=== PATIENT | female | born 1940 | race African-American/Black ===

== ENCOUNTER 2017-08-21 19:13 | Inpatient (IN) | payer MEDICARE, BC ==
[~2017-08-21] VITALS: Ht 167.6 cm; Wt 119.3 kg
[2017-08-21] MEDS ORDERED: SODIUM CHLORIDE 0.9% 1,000 ML IV ONE ×2 (19:17→21:15)
[2017-08-21] MEDS ORDERED: PROPOFOL 10MG/ML 100ML 100 ML IV ONE (19:30)
[2017-08-21] MEDS ORDERED: LORAZEPAM 2MG/ML CPJ IV ONE (19:45)
[2017-08-21] MEDS ORDERED: LEVETIRACETAM 500MG PREMIX 100 ML IV ONE (19:45)
[2017-08-21 20:35] LABS: BG BASE EXCESS -8.9 mmol/L (-2.0-2.0); BG CARBOXYHEMOGLOBIN 0.3 % (0.5-1.5); BG DEOXYHEMOGLOBIN 0.4 % (0.0-5.0); BG FRACTION INSPIRED OXYGEN 100; BG METHEMOGLOBIN 0.4 % (0.0-1.5); BG OXYGEN SATURATION 99.6 % (92.0-98.5); BG OXYHEMOGLOBIN 98.9 % (94.0-97.0); BG PCO2 27.7 mmHg (35.0-45.0); BG PH 7.351 (7.350-7.450); BG SAMPLE SITE RIGHT RADIAL; BG TIDAL VOLUME(mL) 600 mL; BG TOTAL HEMOGLOBIN 15.1 g/dL (12.0-18.0); BG VENT MODE VENT - A/C; BG VENT RATE 14 set
[2017-08-21 20:58] LABS: INR 1.1; PROTHROMBIN TIME 11.4 sec (9.4-11.6)
[2017-08-21 20:59] LABS: CLARITY URINE CLEAR (CLEAR); COLOR URINE YELLOW (YELLOW); GLUCOSE URINE 3+ (NEGATIVE); KETONES URINE NEGATIVE (NEGATIVE); LEUKOCYTE ESTERASE URINE NEGATIVE (NEGATIVE); NITRITE URINE NEGATIVE (NEGATIVE); OCCULT BLOOD URINE 3+ (NEGATIVE); PROTEIN URINE 1+ (NEGATIVE); SPECIFIC GRAVITY URINE 1.026 (1.005-1.030); UROBILINOGEN URINE 0.2 E.U./dL (0.2-1.0)
[2017-08-21 21:01] LABS: AMMONIA 20 uMol/L (<32)
[2017-08-21 21:03] LABS: CARBON DIOXIDE 14 mEq/L (21-32); CHLORIDE 105 mEq/L (98-107); ETHANOL BLOOD < 10 mg/dL
[2017-08-21 21:04] LABS: HEMATOCRIT. 39.2 % (36.0-48.0); HEMOGLOBIN. 12.7 g/dL (12.0-16.0); MEAN CORPUSCULAR HEMOGLOBIN 29.7 pg (28.0-32.0); MEAN CORPUSCULAR VOLUME 91.8 fL (81.0-99.0); MEAN PLATELET VOLUME 11.9 fl (7.4-10.4); PLATELET 227 x1000/uL (130-400); RED BLOOD CELL COUNT 4.27 mill/uL (4.2-5.4); RED CELL DISTRIBUTION WIDTH 14.8 % (11.6-14.6)
[2017-08-21 21:06] LABS: TROPONIN I 0.19 ng/mL (0.00-0.04)
[2017-08-21 21:08] LABS: *AMPHETAMINES SCREEN URINE NEGATIVE (NEGATIVE); *BARBITURATES SCREEN URINE NEGATIVE (NEGATIVE); *BENZODIAZEPINES SCREEN URINE NEGATIVE (NEGATIVE); *COCAINE SCREEN URINE NEGATIVE (NEGATIVE); CANNABINOID URINE SCREEN NEGATIVE (NEGATIVE); METHADONE URINE SCREEN NEGATIVE (NEGATIVE); OPIATES URINE SCREEN NEGATIVE (NEGATIVE); PHENCYCLIDINE URINE SCREEN NEGATIVE (NEGATIVE)
[2017-08-21 21:10] LABS: CARBAMAZEPINE < 0.5 ug/mL (4-12)
[2017-08-21] MEDS ORDERED: INSULIN REGULAR (DRIP) 100 UNITS in SODIUM CHLORIDE 0.9% 99 ML IV SCH (21:15)
[2017-08-21] MEDS ORDERED: INSULIN REGULAR (HUMULIN R) 300UNITS/3ML IV ONE (21:15)
[2017-08-21 21:18] LABS: PHENOBARBITAL < 2.1 ug/mL (15.0-40.0)
[2017-08-21 21:21] LABS: CREATINE KINASE 5485 IU/L (26-192)
[2017-08-21 22:06] LABS: PLATELET ESTIMATE NORMAL
[2017-08-22] VITALS (93 sets, daily range): BP systolic 89–162; BP diastolic 43–97
[2017-08-22] MEDS ORDERED: INSULIN REGULAR (DRIP) 100 UNITS in SODIUM CHLORIDE 0.9% 100 ML IV SCH (01:28)
[2017-08-22] MEDS: SODIUM CHLORIDE 0.9% 1,000 ML IV SCH ×4 (01:30→21:30)
[2017-08-22] MEDS: BLOOD SUGAR DIAGNOSTIC STRIP TEST SCH ×19 (01:30→23:30)
[2017-08-22] MEDS ORDERED: DEXTROSE 50% WATER 50ML SYRINGE IV PRN ×2 (01:30)
[2017-08-22] MEDS: PROPOFOL 10MG/ML 100ML 100 ML IV PRN ×2 (03:37→20:46)
[2017-08-22] MEDS: ENOXAPARIN 30MG/0.3ML SYR SUBCUT SCH (08:07)
[2017-08-22] MEDS: PANTOPRAZOLE SODIUM 40 MG/VIAL IV SCH (08:07)
[2017-08-22 09:09] LABS: BG BASE EXCESS -4.3 mmol/L (-2.0-2.0); BG CARBOXYHEMOGLOBIN 0.2 % (0.5-1.5); BG FRACTION INSPIRED OXYGEN 50; BG HCO3 ACT 17.8 mmol/L (22.0-26.0); BG METHEMOGLOBIN 0.4 % (0.0-1.5); BG OXYHEMOGLOBIN 98.4 % (94.0-97.0); BG PCO2 25.6 mmHg (35.0-45.0); BG PO2 173.8 mmHg (75.0-100.0); BG SAMPLE SITE RIGHT BRACHIAL; BG TIDAL VOLUME(mL) 600 mL; BG VENT MODE VENT - A/C; BG VENT RATE 14 set
[2017-08-22] MEDS ORDERED: LEVOFLOXACIN 750MG PREMIX 150 ML IV SCH (12:00)
[2017-08-22] MEDS ORDERED: VANCOMYCIN 2,000 MG in DEXT 5% WATER 500 ML IV SCH (14:00)
[2017-08-22] MEDS ORDERED: FUROSEMIDE 20MG/2ML VIAL IVP NR (14:00)
[2017-08-22 15:20] LABS: BASOPHILS % 0.4 % (0.0-2.0); EOSINOPHILS % 0.1 % (0.0-5.0); HEMOGLOBIN. 11.9 g/dL (12.0-16.0); LYMPHOCYTES % 13.5 % (20.0-50.0); MEAN CORPUSCULAR HEMOGLOBIN 29.2 pg (28.0-32.0); MEAN CORPUSCULAR VOLUME 88.1 fL (81.0-99.0); MEAN PLATELET VOLUME 11.4 fl (7.4-10.4); MONOCYTES % 9.5 % (2.0-8.0); NEUTROPHILS % 76.5 % (40.0-76.0); PLATELET 177 x1000/uL (130-400); RED BLOOD CELL COUNT 4.09 mill/uL (4.2-5.4); RED CELL DISTRIBUTION WIDTH 14.4 % (11.6-14.6)
[2017-08-22 15:46] LABS: CREATINE KINASE MB FRACTION 33.2 ng/mL (0.5-3.6)
[2017-08-22 16:03] LABS: TROPONIN I 1.4 ng/mL (0.00-0.04)
[2017-08-22] MEDS ORDERED: SODIUM CHLORIDE 0.9% 100 ML IV NR (16:15)
[2017-08-22] MEDS: IPRATROPIUM/ALBUTEROL 0.5-3(2.5)MG/3ML NEB HHN SCH (19:59)
[2017-08-22 23:56] LABS: CREATINE KINASE MB FRACTION 23.7 ng/mL (0.5-3.6)
[2017-08-23] VITALS (69 sets, daily range): BP systolic 103–174; BP diastolic 38–108
[2017-08-23] MEDS: IPRATROPIUM/ALBUTEROL 0.5-3(2.5)MG/3ML NEB HHN SCH ×6 (00:06→20:09)
[2017-08-23 00:24] LABS: TROPONIN I 2.1 ng/mL (0.00-0.04)
[2017-08-23] MEDS: BLOOD SUGAR DIAGNOSTIC STRIP TEST SCH ×5 (00:30→23:02)
[2017-08-23] MEDS ORDERED: DEXTROSE 50% WATER 50ML SYRINGE IV PRN (00:45)
[2017-08-23] MEDS ORDERED: PROPOFOL 200MG/20ML VIAL IV PRN (05:00)
[2017-08-23] MEDS ORDERED: PROPOFOL 10MG/ML 100ML 100 ML IV PRN (05:15)
[2017-08-23 06:15] LABS: BASOPHILS % 0.6 % (0.0-2.0); HEMATOCRIT 34.5 % (36.0-48.0); HEMATOCRIT. 34.5 % (36.0-48.0); HEMOGLOBIN 11.5 g/dL (12.0-16.0); HEMOGLOBIN. 11.5 g/dL (12.0-16.0); LYMPHOCYTES % 12.3 % (20.0-50.0); MEAN CORPUSCULAR HEMOGLOBIN 29.8 pg (28.0-32.0); MEAN CORPUSCULAR VOLUME 89.5 fL (81.0-99.0); MEAN PLATELET VOLUME 11.5 fl (7.4-10.4); MONOCYTES % 10.5 % (2.0-8.0); NEUTROPHILS % 74.6 % (40.0-76.0); PLATELET 154 x1000/uL (130-400); RED BLOOD CELL COUNT 3.85 mill/uL (4.2-5.4); RED CELL DISTRIBUTION WIDTH 14.8 % (11.6-14.6)
[2017-08-23] MEDS: INSULIN LISPRO 100 UNITS/ML SUBCUT SCH ×4 (06:24→23:04)
[2017-08-23] MEDS ORDERED: INSULIN LISPRO 100 UNITS/ML SUBCUT SCH (07:00)
[2017-08-23 07:41] LABS: TROPONIN I 1.8 ng/mL (0.00-0.04)
[2017-08-23 09:13] LABS: BG BASE EXCESS -12.3 mmol/L (-2.0-2.0); BG FRACTION INSPIRED OXYGEN 40; BG HCO3 ACT 11.7 mmol/L (22.0-26.0); BG PCO2 23.4 mmHg (35.0-45.0); BG PH 7.315 (7.350-7.450); BG PO2 125.1 mmHg (75.0-100.0); BG SAMPLE SITE RIGHT BRACHIAL; BG TIDAL VOLUME(mL) 550 mL; BG VENT MODE VENT - A/C; BG VENT RATE 10 set
[2017-08-23 09:38] LABS: BG CARBOXYHEMOGLOBIN 0.3 % (0.5-1.5); BG DEOXYHEMOGLOBIN 1.4 % (0.0-5.0); BG METHEMOGLOBIN 0.4 % (0.0-1.5); BG OXYGEN SATURATION 98.6 % (92.0-98.5); BG OXYHEMOGLOBIN 97.9 % (94.0-97.0)
[2017-08-23] MEDS: ENOXAPARIN 30MG/0.3ML SYR SUBCUT SCH (10:08)
[2017-08-23] MEDS: PANTOPRAZOLE SODIUM 40 MG/VIAL IV SCH (10:08)
[2017-08-23] MEDS: INSULIN DETEMIR UD 100 UNITS/ML SYR SUBCUT SCH ×2 (10:13→22:56)
[2017-08-23] MEDS: SODIUM CHLORIDE 0.9% 1,000 ML IV SCH (11:26)
[2017-08-23] MEDS: MIDAZOLAM HCL 100 MG in DEXT 5% WATER 80 ML IV PRN ×2 (11:56→23:06)
[2017-08-23] MEDS ORDERED: VANCOMYCIN 500 MG PREMIX 100 ML IV NR (13:00)
[2017-08-23] MEDS ORDERED: SODIUM BICARBONATE 100 MEQ in SODIUM CHLORIDE 0.45% 1,000 ML IV SCH (19:00)
[2017-08-23] MEDS: FENTANYL CITRATE/PF 500 MCG in SODIUM CHLORIDE 0.9% 40 ML IV PRN (19:49)
[2017-08-23] MEDS: ATORVASTATIN CALCIUM 10MG TABLET PO SCH (20:17)
[2017-08-24] VITALS (69 sets, daily range): BP systolic 110–159; BP diastolic 60–86
[2017-08-24] MEDS: IPRATROPIUM/ALBUTEROL 0.5-3(2.5)MG/3ML NEB HHN SCH ×6 (00:12→23:49)
[2017-08-24] MEDS: BLOOD SUGAR DIAGNOSTIC STRIP TEST SCH ×4 (06:08→23:52)
[2017-08-24] MEDS: INSULIN LISPRO 100 UNITS/ML SUBCUT SCH ×4 (06:16→23:51)
[2017-08-24 06:35] LABS: CARBON DIOXIDE 17 mEq/L (21-32); CHLORIDE 109 mEq/L (98-107); CREATINE KINASE MB FRACTION 5.6 ng/mL (0.5-3.6); PHOSPHORUS 4.8 mg/dL (2.5-4.9)
[2017-08-24 06:53] LABS: CREATINE KINASE 5579 IU/L (26-192)
[2017-08-24 06:55] LABS: TROPONIN I 0.67 ng/mL (0.00-0.04)
[2017-08-24 08:07] LABS: BG BASE EXCESS -9.3 mmol/L (-2.0-2.0); BG CARBOXYHEMOGLOBIN 0.3 % (0.5-1.5); BG DEOXYHEMOGLOBIN 3.3 % (0.0-5.0); BG FRACTION INSPIRED OXYGEN 35; BG HCO3 ACT 14.2 mmol/L (22.0-26.0); BG METHEMOGLOBIN 0.2 % (0.0-1.5); BG OXYGEN SATURATION 96.7 % (92.0-98.5); BG OXYHEMOGLOBIN 96.2 % (94.0-97.0); BG PCO2 24.7 mmHg (35.0-45.0); BG PH 7.377 (7.350-7.450); BG PO2 94.6 mmHg (75.0-100.0); BG SAMPLE SITE LEFT RADIAL; BG TIDAL VOLUME(mL) 500 mL; BG TOTAL HEMOGLOBIN 11.8 g/dL (12.0-18.0); BG VENT MODE VENT - A/C; BG VENT RATE 10 set
[2017-08-24 08:27] LABS: INR 1.1; PARTIAL THROMBOPLASTIN TIME 27.1 sec (23.4-31.0); PROTHROMBIN TIME 10.9 sec (9.4-11.6)
[2017-08-24] MEDS: PANTOPRAZOLE SODIUM 40 MG/VIAL IV SCH (09:08)
[2017-08-24] MEDS: ENOXAPARIN 30MG/0.3ML SYR SUBCUT SCH (09:09)
[2017-08-24] MEDS ORDERED: HEPARIN 1000 UNITS/ML 10ML ONE (09:11)
[2017-08-24] MEDS ORDERED: LORAZEPAM 2MG/ML CPJ IV PRN (10:15)
[2017-08-24] MEDS ORDERED: PHENYTOIN SODIUM 1,000 MG in SODIUM CHLORIDE 0.9% 100 ML IV SCH (10:30)
[2017-08-24] MEDS: INSULIN DETEMIR UD 100 UNITS/ML SYR SUBCUT SCH ×2 (11:03→21:14)
[2017-08-24 12:08] LABS: HEPATITIS B SURFACE ANTIGEN NEGATIVE
[2017-08-24 12:35] LABS: HEPATITIS B CORE AB IGM NEGATIVE
[2017-08-24 12:36] LABS: HEPATITIS A AB IGM NEGATIVE (NEGATIVE)
[2017-08-24] MEDS ORDERED: HEPARIN SODIUM 1,000 UNIT/1ML VIAL IV SCH (12:45)
[2017-08-24] MEDS: LEVOFLOXACIN 500MG PREMIX 100 ML IV SCH (13:47)
[2017-08-24] MEDS ORDERED: VANCOMYCIN 1 G PREMIX 200 ML IV NR (16:00)
[2017-08-24] MEDS: ATORVASTATIN CALCIUM 10MG TABLET PO SCH (21:10)
[2017-08-25] VITALS (83 sets, daily range): BP systolic 120–159; BP diastolic 66–91
[2017-08-25] MEDS: IPRATROPIUM/ALBUTEROL 0.5-3(2.5)MG/3ML NEB HHN SCH ×6 (00:02→20:16)
[2017-08-25] MEDS: FENTANYL CITRATE/PF 500 MCG in SODIUM CHLORIDE 0.9% 40 ML IV PRN (03:47)
[2017-08-25] MEDS: INSULIN LISPRO 100 UNITS/ML SUBCUT SCH ×4 (05:22→23:16)
[2017-08-25] MEDS: BLOOD SUGAR DIAGNOSTIC STRIP TEST SCH ×4 (05:24→23:17)
[2017-08-25 06:24] LABS: BASOPHILS % 0.4 % (0.0-2.0); EOSINOPHILS % 2.6 % (0.0-5.0); HEMATOCRIT. 30.9 % (36.0-48.0); HEMOGLOBIN. 10.4 g/dL (12.0-16.0); LYMPHOCYTES % 15.6 % (20.0-50.0); MEAN CORPUSCULAR HEMOGLOBIN 29.7 pg (28.0-32.0); MEAN CORPUSCULAR VOLUME 87.7 fL (81.0-99.0); MEAN PLATELET VOLUME 11.6 fl (7.4-10.4); MONOCYTES % 11.4 % (2.0-8.0); PLATELET 143 x1000/uL (130-400); RED BLOOD CELL COUNT 3.52 mill/uL (4.2-5.4); RED CELL DISTRIBUTION WIDTH 14.5 % (11.6-14.6)
[2017-08-25 06:36] LABS: CREATINE KINASE MB FRACTION 1.5 ng/mL (0.5-3.6); PHOSPHORUS 2.9 mg/dL (2.5-4.9); TROPONIN I 0.24 ng/mL (0.00-0.04)
[2017-08-25 08:39] LABS: BG CARBOXYHEMOGLOBIN 0.2 % (0.5-1.5); BG DEOXYHEMOGLOBIN 2.7 % (0.0-5.0); BG FRACTION INSPIRED OXYGEN 35; BG HCO3 ACT 26.7 mmol/L (22.0-26.0); BG OXYGEN SATURATION 97.3 % (92.0-98.5); BG OXYHEMOGLOBIN 97.1 % (94.0-97.0); BG PCO2 37.5 mmHg (35.0-45.0); BG PO2 107.8 mmHg (75.0-100.0); BG SAMPLE SITE LEFT RADIAL; BG TIDAL VOLUME(mL) 500 mL; BG TOTAL HEMOGLOBIN 10.9 g/dL (12.0-18.0); BG VENT MODE VENT - A/C; BG VENT RATE 10 set
[2017-08-25] MEDS: PANTOPRAZOLE SODIUM 40 MG/VIAL IV SCH (09:44)
[2017-08-25] MEDS: ENOXAPARIN 30MG/0.3ML SYR SUBCUT SCH (09:45)
[2017-08-25] MEDS: INSULIN DETEMIR UD 100 UNITS/ML SYR SUBCUT SCH ×2 (10:51→21:42)
[2017-08-25 12:05] LABS: BG BASE EXCESS 1.9 mmol/L (-2.0-2.0); BG CARBOXYHEMOGLOBIN 0.3 % (0.5-1.5); BG DEOXYHEMOGLOBIN 4.6 % (0.0-5.0); BG FRACTION INSPIRED OXYGEN 35; BG HCO3 ACT 25.4 mmol/L (22.0-26.0); BG OXYGEN SATURATION 95.4 % (92.0-98.5); BG OXYHEMOGLOBIN 95.1 % (94.0-97.0); BG PCO2 36.1 mmHg (35.0-45.0); BG PH 7.466 (7.350-7.450); BG PO2 78.3 mmHg (75.0-100.0); BG PRESSURE SUPPORT 8; BG SAMPLE SITE LEFT RADIAL; BG TOTAL HEMOGLOBIN 11.3 g/dL (12.0-18.0); BG VENT MODE VENT - CPAP
[2017-08-25] MEDS ORDERED: PHENYTOIN SODIUM 700 MG in SODIUM CHLORIDE 0.9% 100 ML IV NR (16:30)
[2017-08-25] MEDS: PHENYTOIN SODIUM 300MG in SODIUM CHLORIDE 0.9% 50ML IV SCH (20:19)
[2017-08-25] MEDS: ATORVASTATIN CALCIUM 10MG TABLET PO SCH (20:19)
[2017-08-25] MEDS ORDERED: PHENYTOIN SODIUM 100MG/2ML VIAL IV SCH (21:00)
[2017-08-26] VITALS (69 sets, daily range): BP systolic 124–171; BP diastolic 45–109
[2017-08-26] MEDS: IPRATROPIUM/ALBUTEROL 0.5-3(2.5)MG/3ML NEB HHN SCH ×6 (00:07→20:56)
[2017-08-26] MEDS: INSULIN LISPRO 100 UNITS/ML SUBCUT SCH ×3 (05:18→19:22)
[2017-08-26] MEDS: BLOOD SUGAR DIAGNOSTIC STRIP TEST SCH ×3 (05:19→18:00)
[2017-08-26 05:56] LABS: BASOPHILS % 0.3 % (0.0-2.0); HEMOGLOBIN. 10.5 g/dL (12.0-16.0); LYMPHOCYTES % 15.8 % (20.0-50.0); MEAN CORPUSCULAR HEMOGLOBIN 30.5 pg (28.0-32.0); MEAN CORPUSCULAR VOLUME 87.2 fL (81.0-99.0); MEAN PLATELET VOLUME 11.5 fl (7.4-10.4); MONOCYTES % 8.8 % (2.0-8.0); NEUTROPHILS % 70.1 % (40.0-76.0); PLATELET 139 x1000/uL (130-400); RED BLOOD CELL COUNT 3.44 mill/uL (4.2-5.4); RED CELL DISTRIBUTION WIDTH 14.6 % (11.6-14.6)
[2017-08-26 06:36] LABS: PHOSPHORUS 3.1 mg/dL (2.5-4.9)
[2017-08-26] MEDS ORDERED: HEPARIN SODIUM 1,000 UNIT/1ML VIAL IV NR (08:45)
[2017-08-26] MEDS: PANTOPRAZOLE SODIUM 40 MG/VIAL IV SCH (10:45)
[2017-08-26] MEDS: ENOXAPARIN 30MG/0.3ML SYR SUBCUT SCH (10:46)
[2017-08-26] MEDS: INSULIN DETEMIR UD 100 UNITS/ML SYR SUBCUT SCH (10:48)
[2017-08-26] MEDS: LEVOFLOXACIN 500MG PREMIX 100 ML IV SCH (12:34)
[2017-08-26] MEDS ORDERED: VANCOMYCIN 1 G PREMIX 200 ML IV NR (13:00)
[2017-08-26] MEDS ORDERED: PROPOFOL 10MG/ML 100ML 100 ML IV PRN (13:00)
[2017-08-26] MEDS: PHENYTOIN SODIUM 300MG in SODIUM CHLORIDE 0.9% 50ML IV SCH (21:27)
[2017-08-26 22:27] LABS: BG BASE EXCESS 2.9 mmol/L (-2.0-2.0); BG CARBOXYHEMOGLOBIN 0.3 % (0.5-1.5); BG DEOXYHEMOGLOBIN 5.4 % (0.0-5.0); BG FRACTION INSPIRED OXYGEN 28; BG HCO3 ACT 25.7 mmol/L (22.0-26.0); BG METHEMOGLOBIN 0.2 % (0.0-1.5); BG OXYGEN SATURATION 94.6 % (92.0-98.5); BG OXYHEMOGLOBIN 94.1 % (94.0-97.0); BG PCO2 32.6 mmHg (35.0-45.0); BG PH 7.515 (7.350-7.450); BG PO2 66.3 mmHg (75.0-100.0); BG SAMPLE SITE LEFT RADIAL; BG VENT MODE NASAL CANNULA
[2017-08-26] MEDS ORDERED: LORAZEPAM 2MG/ML CPJ IV PRN (23:00)
[2017-08-26] MEDS: MORPHINE SULFATE 2 MG/ML CPJ (NOT FOR IM USE) IV PRN (23:16)
[2017-08-27] VITALS (19 sets, daily range): BP systolic 114–179; BP diastolic 48–90
[2017-08-27] MEDS: INSULIN LISPRO 100 UNITS/ML SUBCUT SCH ×5 (00:50→23:39)
[2017-08-27] MEDS: INSULIN DETEMIR UD 100 UNITS/ML SYR SUBCUT SCH ×3 (00:51→23:04)
[2017-08-27] MEDS: BLOOD SUGAR DIAGNOSTIC STRIP TEST SCH ×5 (00:52→23:35)
[2017-08-27] MEDS: IPRATROPIUM/ALBUTEROL 0.5-3(2.5)MG/3ML NEB HHN SCH ×6 (00:53→21:29)
[2017-08-27] MEDS: CLONIDINE 0.1MG TABLET PO PRN (01:04)
[2017-08-27] MEDS: MORPHINE SULFATE 2 MG/ML CPJ (NOT FOR IM USE) IV PRN (02:29)
[2017-08-27 05:40] LABS: BASOPHILS % 1.1 % (0.0-2.0); EOSINOPHILS % 8.2 % (0.0-5.0); HEMATOCRIT. 31.1 % (36.0-48.0); HEMOGLOBIN. 10.7 g/dL (12.0-16.0); LYMPHOCYTES % 15.6 % (20.0-50.0); MEAN CORPUSCULAR HEMOGLOBIN 30.1 pg (28.0-32.0); MEAN CORPUSCULAR VOLUME 87.4 fL (81.0-99.0); MEAN PLATELET VOLUME 10.5 fl (7.4-10.4); MONOCYTES % 11.2 % (2.0-8.0); NEUTROPHILS % 63.9 % (40.0-76.0); PLATELET 151 x1000/uL (130-400); RED BLOOD CELL COUNT 3.56 mill/uL (4.2-5.4); RED CELL DISTRIBUTION WIDTH 14.1 % (11.6-14.6)
[2017-08-27 06:09] LABS: PHOSPHORUS 2.9 mg/dL (2.5-4.9)
[2017-08-27] MEDS: ENOXAPARIN 30MG/0.3ML SYR SUBCUT SCH (08:30)
[2017-08-27] MEDS: PANTOPRAZOLE SODIUM 40 MG/VIAL IV SCH (08:30)
[2017-08-27 08:46] LABS: CREATINE KINASE 1702 IU/L (26-192)
[2017-08-27] MEDS: PHENYTOIN SODIUM 300MG in SODIUM CHLORIDE 0.9% 50ML IV SCH (21:00)
[2017-08-28] VITALS: BP 146/83
[2017-08-28] MEDS: IPRATROPIUM/ALBUTEROL 0.5-3(2.5)MG/3ML NEB HHN SCH ×6 (00:36→21:10)
[2017-08-28 04:00] VITALS: BP 161/97
[2017-08-28] MEDS: INSULIN LISPRO 100 UNITS/ML SUBCUT SCH ×4 (05:27→23:12)
[2017-08-28] MEDS: BLOOD SUGAR DIAGNOSTIC STRIP TEST SCH ×4 (05:27→23:08)
[2017-08-28] MEDS: CLONIDINE 0.1MG TABLET PO PRN (05:35)
[2017-08-28 07:43] LABS: BASOPHILS % 0.8 % (0.0-2.0); EOSINOPHILS % 9.3 % (0.0-5.0); HEMATOCRIT. 32.3 % (36.0-48.0); HEMOGLOBIN. 11.2 g/dL (12.0-16.0); LYMPHOCYTES % 17.8 % (20.0-50.0); MEAN CORPUSCULAR HEMOGLOBIN 30.4 pg (28.0-32.0); MEAN CORPUSCULAR VOLUME 87.6 fL (81.0-99.0); MEAN PLATELET VOLUME 10.3 fl (7.4-10.4); MONOCYTES % 11.3 % (2.0-8.0); NEUTROPHILS % 60.8 % (40.0-76.0); PLATELET 196 x1000/uL (130-400); RED BLOOD CELL COUNT 3.69 mill/uL (4.2-5.4); RED CELL DISTRIBUTION WIDTH 14.4 % (11.6-14.6)
[2017-08-28 07:51] VITALS: BP 136/64
[2017-08-28 08:16] LABS: PHOSPHORUS 3.8 mg/dL (2.5-4.9)
[2017-08-28] MEDS: ENOXAPARIN 40MG/0.4ML SYR SUBCUT SCH (10:03)
[2017-08-28] MEDS: INSULIN DETEMIR UD 100 UNITS/ML SYR SUBCUT SCH ×2 (10:04→23:13)
[2017-08-28 12:00] VITALS: BP 127/77
[2017-08-28] MEDS ORDERED: HEPARIN SODIUM 1,000 UNIT/1ML VIAL IV SCH (14:00)
[2017-08-28 16:00] VITALS: BP 105/65
[2017-08-28 20:00] VITALS: BP 155/94
[2017-08-28] MEDS: PHENYTOIN SODIUM 300MG in SODIUM CHLORIDE 0.9% 50ML IV SCH (21:20)
[2017-08-29] VITALS: BP 155/97
[2017-08-29] MEDS: IPRATROPIUM/ALBUTEROL 0.5-3(2.5)MG/3ML NEB HHN SCH ×6 (00:55→21:02)
[2017-08-29 04:00] VITALS: BP 158/98
[2017-08-29] MEDS: INSULIN LISPRO 100 UNITS/ML SUBCUT SCH ×5 (05:56→22:30)
[2017-08-29] MEDS: BLOOD SUGAR DIAGNOSTIC STRIP TEST SCH ×4 (05:56→22:30)
[2017-08-29] MEDS: OMEPRAZOLE 20MG CAPSULE EXTENDED RELEASE PO SCH (06:41)
[2017-08-29 06:51] LABS: BASOPHILS % 0.7 % (0.0-2.0); EOSINOPHILS % 4.2 % (0.0-5.0); HEMATOCRIT. 30.7 % (36.0-48.0); HEMOGLOBIN. 10.6 g/dL (12.0-16.0); LYMPHOCYTES % 15.2 % (20.0-50.0); MEAN CORPUSCULAR HEMOGLOBIN 29.9 pg (28.0-32.0); MEAN CORPUSCULAR VOLUME 86.6 fL (81.0-99.0); MEAN PLATELET VOLUME 9.7 fl (7.4-10.4); MONOCYTES % 12.9 % (2.0-8.0); PLATELET 221 x1000/uL (130-400); RED BLOOD CELL COUNT 3.54 mill/uL (4.2-5.4)
[2017-08-29 08:00] VITALS: BP 150/90
[2017-08-29] MEDS: ENOXAPARIN 40MG/0.4ML SYR SUBCUT SCH (08:23)
[2017-08-29] MEDS: INSULIN DETEMIR UD 100 UNITS/ML SYR SUBCUT SCH ×2 (10:26→22:44)
[2017-08-29 12:00] VITALS: BP 150/88
[2017-08-29] MEDS: AMLODIPINE 2.5MG TABLET PO SCH ×2 (14:48→20:51)
[2017-08-29 20:00] VITALS: BP 134/80
[2017-08-29] MEDS: PHENYTOIN SODIUM 300MG in SODIUM CHLORIDE 0.9% 50ML IV SCH (20:50)
[2017-08-29] MEDS ORDERED: DEXTROSE 50% WATER 50ML SYRINGE IV PRN (22:15)
[2017-08-30] VITALS: BP 154/84
[2017-08-30] MEDS: IPRATROPIUM/ALBUTEROL 0.5-3(2.5)MG/3ML NEB HHN SCH ×6 (01:06→21:42)
[2017-08-30 04:00] VITALS: BP 129/81
[2017-08-30] MEDS: BLOOD SUGAR DIAGNOSTIC STRIP TEST SCH ×4 (06:22→20:28)
[2017-08-30] MEDS: OMEPRAZOLE 20MG CAPSULE EXTENDED RELEASE PO SCH (06:54)
[2017-08-30] MEDS: INSULIN LISPRO 100 UNITS/ML SUBCUT SCH ×4 (06:56→20:28)
[2017-08-30 07:17] LABS: BASOPHILS % 0.8 % (0.0-2.0); EOSINOPHILS % 5.1 % (0.0-5.0); HEMATOCRIT. 31.9 % (36.0-48.0); HEMOGLOBIN. 10.6 g/dL (12.0-16.0); LYMPHOCYTES % 18.8 % (20.0-50.0); MEAN CORPUSCULAR HEMOGLOBIN 29.3 pg (28.0-32.0); MEAN CORPUSCULAR VOLUME 88.1 fL (81.0-99.0); MEAN PLATELET VOLUME 9.4 fl (7.4-10.4); MONOCYTES % 10.6 % (2.0-8.0); NEUTROPHILS % 64.7 % (40.0-76.0); PLATELET 256 x1000/uL (130-400); RED BLOOD CELL COUNT 3.62 mill/uL (4.2-5.4); RED CELL DISTRIBUTION WIDTH 14.2 % (11.6-14.6)
[2017-08-30] MEDS ORDERED: INSULIN LISPRO 100 UNITS/ML SUBCUT SCH (07:40)
[2017-08-30 08:00] VITALS: BP 153/84
[2017-08-30] MEDS: AMLODIPINE 2.5MG TABLET PO SCH (09:00)
[2017-08-30] MEDS: ENOXAPARIN 40MG/0.4ML SYR SUBCUT SCH (09:24)
[2017-08-30] MEDS: INSULIN DETEMIR UD 100 UNITS/ML SYR SUBCUT SCH (09:25)
[2017-08-30 12:00] VITALS: BP 141/85
[2017-08-30 16:00] VITALS: BP 119/81
[2017-08-30 20:00] VITALS: BP 120/84
[2017-08-30] MEDS: PHENYTOIN SODIUM 300MG in SODIUM CHLORIDE 0.9% 50ML IV SCH (23:54)
[2017-08-31] VITALS: BP 137/83
[2017-08-31] MEDS: AMLODIPINE 2.5MG TABLET PO SCH ×2 (00:06→09:53)
[2017-08-31] MEDS: IPRATROPIUM/ALBUTEROL 0.5-3(2.5)MG/3ML NEB HHN SCH ×5 (01:53→17:24)
[2017-08-31 04:00] VITALS: BP 118/73
[2017-08-31 06:34] LABS: HEMATOCRIT. 30.1 % (36.0-48.0); HEMOGLOBIN. 9.9 g/dL (12.0-16.0); MEAN CORPUSCULAR HEMOGLOBIN 29.2 pg (28.0-32.0); MEAN CORPUSCULAR VOLUME 88.5 fL (81.0-99.0); MEAN PLATELET VOLUME 9.3 fl (7.4-10.4); PLATELET 255 x1000/uL (130-400); RED CELL DISTRIBUTION WIDTH 14.4 % (11.6-14.6)
[2017-08-31] MEDS: BLOOD SUGAR DIAGNOSTIC STRIP TEST SCH ×2 (06:37→12:10)
[2017-08-31] MEDS: INSULIN LISPRO 100 UNITS/ML SUBCUT SCH ×2 (06:42→12:40)
[2017-08-31] MEDS: OMEPRAZOLE 20MG CAPSULE EXTENDED RELEASE PO SCH (06:42)
[2017-08-31 08:00] VITALS: BP 127/79
[2017-08-31] MEDS: ENOXAPARIN 40MG/0.4ML SYR SUBCUT SCH (09:50)
[2017-08-31] MEDS: INSULIN DETEMIR UD 100 UNITS/ML SYR SUBCUT SCH ×2 (11:17)
[2017-08-31 12:12] VITALS: BP 148/90
[2017-08-31 16:00] VITALS: BP 134/86
[2017-08-31 16:49] LABS: PLATELET ESTIMATE NORMAL
[2017-09-01] MEDS ORDERED: FAMOTIDINE 20MG TABLET PO SCH (07:10)
== END 2017-08-31 18:35 | DRG 871 ==
LOC: ER 19:20 → EDBEDREQSVC 19:33 → MICUNO 21:52 → EDBEDREQTM 21:54 → EDBEDREQ 21:54 → ENRESERV 22:02 → MICUSO 08-24 10:45 → 8WST 08-27 16:04
PROVIDERS: ADMIT Hospitalist; ATTEND Hospitalist
PROC: 5A1945Z Respiratory Ventilation, 24-96 Consecutive Hours (ICD-10-PCS; principal; 2017-08-21)
PROC: 06HM33Z Insertion of Infusion Device into Right Femoral Vein, Percutaneous Approach (ICD-10-PCS; 2017-08-21)
PROC: 02HV33Z Insertion of Infusion Device into Superior Vena Cava, Percutaneous Approach (ICD-10-PCS; 2017-08-24)
PROC: B548ZZA Ultrasonography of Superior Vena Cava, Guidance (ICD-10-PCS; 2017-08-24)
PROC: 5A1D70Z Performance of Urinary Filtration, Intermittent, Less than 6 Hours Per Day (ICD-10-PCS; 2017-08-24)
PROC: 5A1D70Z Performance of Urinary Filtration, Intermittent, Less than 6 Hours Per Day (ICD-10-PCS; 2017-08-30)
DX: A41.9 Sepsis, unspecified organism (principal); N17.0 Acute kidney failure with tubular necrosis; J96.01 Acute respiratory failure with hypoxia; E43 Unspecified severe protein-calorie malnutrition; E11.10 Type 2 diabetes mellitus with ketoacidosis without coma; Z99.11 Dependence on respirator [ventilator] status; G92 Toxic encephalopathy; E87.3 Alkalosis; E86.0 Dehydration; M62.82 Rhabdomyolysis; R47.01 Aphasia; Z68.41 Body mass index [BMI] 40.0-44.9, adult; E78.1 Pure hyperglyceridemia; D64.9 Anemia, unspecified; B96.89 Other specified bacterial agents as the cause of diseases classified elsewhere; R26.9 Unspecified abnormalities of gait and mobility; E66.01 Morbid (severe) obesity due to excess calories; G40.909 Epilepsy, unspecified, not intractable, without status epilepticus; J32.0 Chronic maxillary sinusitis; J32.2 Chronic ethmoidal sinusitis; R13.10 Dysphagia, unspecified; R47.1 Dysarthria and anarthria; E11.22 Type 2 diabetes mellitus with diabetic chronic kidney disease; N18.9 Chronic kidney disease, unspecified; I12.9 Hypertensive chronic kidney disease with stage 1 through stage 4 chronic kidney disease, or unspecified chronic kidney disease; Z99.2 Dependence on renal dialysis; Z86.73 Personal history of transient ischemic attack (TIA), and cerebral infarction without residual deficits
CPT/HCPCS: 36415; 36556; 36600; 43760; 70450; 70551; 71010; 72170; 73502; 76770; 76937; 80048; 80053; 80156; 80165; 80184; 80185; 80202; 80305; 81001; 82010; 82140; 82375; 82550; 82553; 82570; 82805; 82962; 83605; 83735; 83880; 84100; 84156; 84300; 84443; 84478; 84484; 85025; 85027; 85379; 85610; 85730; 86705; 86709; 86803; 87040; 87070; 87086; 87340; 92523; 92610; 93005; 93306; 93970; 94003; 94640; 94667; 96361; 96374; 96375; 97110; 97112; 97163; 97164; 97167; 97530; 97532; 97535; 99291; C1752; C9113; G0482; J1165; J1644; J1650; J1815; J1940; J1953; J1956; J2060; J2250; J2270; J2704; J3010; J3370; J3490; J7030; J7050; J7060; J7620

== ENCOUNTER 2017-09-02 19:43 | Inpatient (IN) | payer MEDICARE, BC ==
[~2017-09-02] VITALS: Ht 167.6 cm; Wt 133.8 kg
[2017-09-02 21:41] LABS: CLARITY URINE CLEAR (CLEAR); COLOR URINE YELLOW (YELLOW); GLUCOSE URINE NEGATIVE (NEGATIVE); KETONES URINE NEGATIVE (NEGATIVE); LEUKOCYTE ESTERASE URINE 3+ (NEGATIVE); NITRITE URINE NEGATIVE (NEGATIVE); OCCULT BLOOD URINE 3+ (NEGATIVE); PROTEIN URINE 1+ (NEGATIVE); SPECIFIC GRAVITY URINE 1.011 (1.005-1.030); UROBILINOGEN URINE 0.2 E.U./dL (0.2-1.0)
[2017-09-02 21:56] LABS: BASOPHILS % 0.8 % (0.0-2.0); EOSINOPHILS % 3.5 % (0.0-5.0); HEMOGLOBIN. 9.5 g/dL (12.0-16.0); LYMPHOCYTES % 12.7 % (20.0-50.0); MEAN CORPUSCULAR HEMOGLOBIN 30.2 pg (28.0-32.0); MEAN CORPUSCULAR VOLUME 88.6 fL (81.0-99.0); MEAN PLATELET VOLUME 8.8 fl (7.4-10.4); PLATELET 237 x1000/uL (130-400); RED BLOOD CELL COUNT 3.16 mill/uL (4.2-5.4); RED CELL DISTRIBUTION WIDTH 14.5 % (11.6-14.6)
[2017-09-02 21:59] LABS: PROTHROMBIN TIME 10.6 sec (9.4-11.6)
[2017-09-02 22:01] LABS: CARBON DIOXIDE 26 mEq/L (21-32); CHLORIDE 99 mEq/L (98-107)
[2017-09-02 23:45] VITALS: BP 138/74
[2017-09-03] MEDS ORDERED: PHEN50TA2 IV (02:36)
[2017-09-03] MEDS ORDERED: OMEP20CA10 PO (02:38)
[2017-09-03] MEDS ORDERED: AMLO2.5T2 PO (02:38)
[2017-09-03] MEDS ORDERED: CLON0.1T PO (02:47)
[2017-09-03] MEDS ORDERED: LOV40 SUBCUT (02:47)
[2017-09-03] MEDS ORDERED: INSLIS SUBCUT (02:47)
[2017-09-03] MEDS ORDERED: LEVVL SQ (02:47)
[2017-09-03] MEDS ORDERED: LORA2VIA33 IV (02:47)
[2017-09-03 04:00] VITALS: BP 152/77
[2017-09-03] MEDS ORDERED: ACETAMINOPHEN 325MG TABLET PO PRN (07:00)
[2017-09-03] MEDS ORDERED: CLONIDINE 0.1MG TABLET PO PRN (07:00)
[2017-09-03] MEDS ORDERED: LORAZEPAM 2MG/ML CPJ IV PRN (07:00)
[2017-09-03] MEDS ORDERED: ONDANSETRON HCL 4MG/2ML VIAL IV PRN (07:00)
[2017-09-03] MEDS ORDERED: DIPHENHYDRAMINE 50MG/ML VIAL IV PRN (07:00)
[2017-09-03] MEDS ORDERED: IPRATROPIUM/ALBUTEROL 0.5-3(2.5)MG/3ML NEB INH PRN (07:00)
[2017-09-03] MEDS ORDERED: MORPHINE SULFATE 10 MG/ML CPJ IV PRN (07:00)
[2017-09-03 08:00] VITALS: BP 140/70
[2017-09-03 12:00] VITALS: BP 140/71
[2017-09-03] MEDS ORDERED: DEXTROSE 50% WATER 50ML SYRINGE IV PRN (12:15)
[2017-09-03] MEDS: BLOOD SUGAR DIAGNOSTIC STRIP TEST SCH ×3 (12:48→21:12)
[2017-09-03] MEDS: INSULIN LISPRO 100 UNITS/ML SUBCUT SCH ×3 (12:50→21:59)
[2017-09-03 16:00] VITALS: BP 155/82
[2017-09-03] MEDS: CEFTRIAXONE 1 G PREMIX 50 ML IV SCH (18:02)
[2017-09-03] MEDS: PHENYTOIN SODIUM EXTENDED 100MG CAPSULE PO SCH ×2 (18:02→21:09)
[2017-09-03 20:00] VITALS: BP 150/82
[2017-09-04] VITALS: BP_SYST 133; BP_SYST 145; BP_DIAS 70; BP_DIAS 76
[2017-09-04 04:00] VITALS: BP 149/82
[2017-09-04] MEDS: PHENYTOIN SODIUM EXTENDED 100MG CAPSULE PO SCH ×3 (06:38→21:03)
[2017-09-04] MEDS: BLOOD SUGAR DIAGNOSTIC STRIP TEST SCH ×4 (06:41→21:04)
[2017-09-04] MEDS: INSULIN LISPRO 100 UNITS/ML SUBCUT SCH ×4 (07:50→22:22)
[2017-09-04 08:00] VITALS: BP 139/83
[2017-09-04 09:32] LABS: HEMATOCRIT. 26.3 % (36.0-48.0); HEMOGLOBIN. 8.8 g/dL (12.0-16.0); MEAN CORPUSCULAR HEMOGLOBIN 29.6 pg (28.0-32.0); MEAN CORPUSCULAR VOLUME 88.4 fL (81.0-99.0); MEAN PLATELET VOLUME 9.2 fl (7.4-10.4); PLATELET 266 x1000/uL (130-400); RED BLOOD CELL COUNT 2.98 mill/uL (4.2-5.4); RED CELL DISTRIBUTION WIDTH 14.3 % (11.6-14.6)
[2017-09-04 09:58] LABS: CARBON DIOXIDE 21 mEq/L (21-32); CHLORIDE 100 mEq/L (98-107)
[2017-09-04] MEDS: CEFTRIAXONE 1 G PREMIX 50 ML IV SCH (18:40)
[2017-09-04 20:00] VITALS: BP 141/86
[2017-09-04 20:43] LABS: PLATELET ESTIMATE NORMAL
[2017-09-05] VITALS (13 sets, daily range): BP systolic 131–156; BP diastolic 76–91
[2017-09-05] MEDS: PHENYTOIN SODIUM EXTENDED 100MG CAPSULE PO SCH ×3 (05:39→22:24)
[2017-09-05] MEDS: BLOOD SUGAR DIAGNOSTIC STRIP TEST SCH ×4 (06:22→21:00)
[2017-09-05 06:45] LABS: BASOPHILS % 0.8 % (0.0-2.0); EOSINOPHILS % 6.1 % (0.0-5.0); HEMATOCRIT. 26.5 % (36.0-48.0); HEMOGLOBIN. 9.2 g/dL (12.0-16.0); LYMPHOCYTES % 14.9 % (20.0-50.0); MEAN CORPUSCULAR HEMOGLOBIN 30.8 pg (28.0-32.0); MEAN CORPUSCULAR VOLUME 88.3 fL (81.0-99.0); MEAN PLATELET VOLUME 9.3 fl (7.4-10.4); MONOCYTES % 10.1 % (2.0-8.0); NEUTROPHILS % 68.1 % (40.0-76.0); PLATELET 275 x1000/uL (130-400); RED CELL DISTRIBUTION WIDTH 14.2 % (11.6-14.6)
[2017-09-05] MEDS ORDERED: SODIUM BICARBONATE 4% (2.4MEQ) 5ML VIAL IV ONE (07:44)
[2017-09-05] MEDS ORDERED: LIDOCAINE HCL 1% 20ML VIAL (Pyxis) INJ ONE (07:44)
[2017-09-05] MEDS: INSULIN LISPRO 100 UNITS/ML SUBCUT SCH ×4 (07:50→22:24)
[2017-09-05] MEDS ORDERED: FENTANYL CITRATE/PF 50MCG/ML 2ML VIAL ONE (08:13)
[2017-09-05] MEDS: CEFTRIAXONE 1 G PREMIX 50 ML IV SCH (13:34)
[2017-09-06] VITALS: BP 143/85
[2017-09-06 04:00] VITALS: BP 165/89
[2017-09-06] MEDS: PHENYTOIN SODIUM EXTENDED 100MG CAPSULE PO SCH (05:15)
[2017-09-06] MEDS: BLOOD SUGAR DIAGNOSTIC STRIP TEST SCH (06:22)
[2017-09-06 06:24] LABS: BASOPHILS % 1.1 % (0.0-2.0); EOSINOPHILS % 6.1 % (0.0-5.0); HEMATOCRIT. 25.2 % (36.0-48.0); HEMOGLOBIN. 8.5 g/dL (12.0-16.0); LYMPHOCYTES % 17.1 % (20.0-50.0); MEAN CORPUSCULAR VOLUME 88.9 fL (81.0-99.0); MEAN PLATELET VOLUME 9.5 fl (7.4-10.4); MONOCYTES % 11.3 % (2.0-8.0); NEUTROPHILS % 64.4 % (40.0-76.0); PLATELET 280 x1000/uL (130-400); RED BLOOD CELL COUNT 2.83 mill/uL (4.2-5.4); RED CELL DISTRIBUTION WIDTH 14.2 % (11.6-14.6)
[2017-09-06 08:00] VITALS: BP 160/70
[2017-09-06] MEDS ORDERED: POTASSIUM CHLORIDE 20MEQ TABLET SR PO NR (10:00)
[2017-09-06 12:00] VITALS: BP 136/70
[2017-09-06] MEDS ORDERED: FLUCONAZOLE 200MG TABLET PO SCH (12:15)
== END 2017-09-06 15:45 | DRG 314 ==
LOC: ER 19:50 → 6EST 22:27 → ENRESERV 22:35
PROVIDERS: ADMIT Hospitalist; ATTEND Hospitalist
PROC: 02HV33Z Insertion of Infusion Device into Superior Vena Cava, Percutaneous Approach (ICD-10-PCS; principal; 2017-09-05)
PROC: B5181ZA Fluoroscopy of Superior Vena Cava using Low Osmolar Contrast, Guidance (ICD-10-PCS; 2017-09-05)
PROC: B548ZZA Ultrasonography of Superior Vena Cava, Guidance (ICD-10-PCS; 2017-09-05)
PROC: 05PYX3Z Removal of Infusion Device from Upper Vein, External Approach (ICD-10-PCS; 2017-09-05)
DX: T82.838A Hemorrhage due to vascular prosthetic devices, implants and grafts, initial encounter (principal); E43 Unspecified severe protein-calorie malnutrition; G93.40 Encephalopathy, unspecified; N18.6 End stage renal disease; I13.2 Hypertensive heart and chronic kidney disease with heart failure and with stage 5 chronic kidney disease, or end stage renal disease; N39.0 Urinary tract infection, site not specified; Z68.42 Body mass index [BMI] 45.0-49.9, adult; E11.22 Type 2 diabetes mellitus with diabetic chronic kidney disease; I50.9 Heart failure, unspecified; D63.8 Anemia in other chronic diseases classified elsewhere; E66.01 Morbid (severe) obesity due to excess calories; G40.909 Epilepsy, unspecified, not intractable, without status epilepticus; Z99.2 Dependence on renal dialysis; Z79.4 Long term (current) use of insulin; Z79.899 Other long term (current) drug therapy
CPT/HCPCS: 36415; 36558; 71010; 76937; 77001; 80048; 80053; 80185; 81001; 82962; 83036; 85025; 85610; 87040; 87086; 93005; 97162; 99285; C1750; C1769; C1893; J0696; J1642; J1815; J3010; J3490; J7030